=== PATIENT | female | born 2000 | race Two or more races ===

== ENCOUNTER 2021-06-08 18:09 | Emergency (ER) | payer MEDICAID ==
[~2021-06-08] VITALS: Ht 160 cm; Wt 52.2 kg
--- NOTE | 2021-06-08 18:35 | NUR ---
TO ER BED 11, C/O JAW PAIN,SLIPPED AND FELL LAST NIGHT, AAOX3, BREATHING EVEN AND NON LABORED, AWAITING MD ORDERS
[2021-06-08] MEDS ORDERED: IV NS 0.9% 1,000 ML BAG IV ONE (19:00)
[2021-06-08] MEDS ORDERED: ONDANSETRON HCL/PF 4 MG/2 ML VIAL IV ONE (19:00)
[2021-06-08] MEDS ORDERED: MORPHINE SULFATE INJ 4 MG/ML DISP.SYRIN IV ONE (19:00)
[2021-06-08] MEDS ORDERED: MORPHINE SULFATE INJ 2 MG/ML DISP.SYRIN ONE ×2 (19:09→19:11)
[2021-06-08] MEDS ORDERED: ONDANSETRON HCL/PF 4 MG/2 ML VIAL ONE (19:09)
[2021-06-08] MEDS ORDERED: MORPHINE SULFATE INJ 2 MG/ML DISP.SYRIN IV ONE (19:30)
[2021-06-08 19:38] LABS: CALCIUM, SERUM 9.1 mg/dL (8.5-10.1); CREATININE 0.8 mg/dL (0.6-1.3); POTASSIUM 3.3 mmol/L (3.5-5.1)
[2021-06-08] MEDS: KETOROLAC TROMETHAMINE INJ 30 MG/ML VIAL IV ONE ×2 (19:45→21:44)
--- NOTE | 2021-06-08 19:45 | NUR ---
PT DENIED PAIN AT THIS TIME. VSS.
[2021-06-08 20:02] LABS: BASOPHILS # (AUTO) 0.1 K/uL (0.0-0.2); BASOPHILS % (AUTO) 0.5 % (0.0-2.0); EOSINOPHILS % (AUTO) 0.4 % (0.0-6.0); HEMATOCRIT 37 % (33-45); HEMOGLOBIN 11.6 g/dL (11.5-14.8); LYMPHOCYTES # (AUTO) 2.2 K/uL (0.8-4.8); LYMPHOCYTES % (AUTO) 23.1 % (20.0-44.0); MEAN CORPUSCULAR HGB CONC 31 g/dl (31.0-36.0); MEAN CORPUSCULAR VOLUME 79 fL (82-100); MONOCYTES # (AUTO) 0.8 K/uL (0.1-1.30); MONOCYTES % (AUTO) 8.8 % (2.0-12.0); NEUTROPHILS # (AUTO) 6.5 K/uL (1.8-8.9); NEUTROPHILS % (AUTO) 67.2 % (43.0-81.0); PLATELET COUNT (AUTO) 325 K/uL (150-450); RED BLOOD CELL COUNT(AUTO) 4.74 MIL/uL (4.0-5.2); WHITE BLOOD COUNT (AUTO) 9.6 K/uL (4.3-11.0)
[2021-06-08] MEDS ORDERED: IV NS 0.9% 250 ML IV ONE (20:30)
[2021-06-08] MEDS ORDERED: IOHEXOL-300 100 ML VIAL IV ONE (20:30)
--- NOTE | 2021-06-08 20:36 | NUR ---
PT TAKEN TO CT VIA [facility]AT[facility]
--- NOTE | 2021-06-08 20:42 | NUR ---
PT RETURNED TO ER BED [address]
[2021-06-08] MEDS ORDERED: KETOROLAC TROMETHAMINE 15 MG/ML VIAL ONE (21:40)
[2021-06-08] MEDS ORDERED: CLIN300C12 PO (22:50)
[2021-06-08] MEDS ORDERED: HYDR-4303 PO (22:50)
[2021-06-08] MEDS ORDERED: CLINDAMYCIN 600 MG in IV D5W 100 ML IV ONE (23:00)
[2021-06-08] MEDS ORDERED: CLINDAMYCIN PHOSPHATE IV 600 MG/4 ML VIAL ONE (23:15)
[2021-06-08 23:17] VITALS: BP 115/71
--- NOTE | 2021-06-08 23:17 | NUR ---
Patient discharged to home in stable condition. Written and verbal after care instructions given. Patient verbalizes understanding of instruction. IV removed. Catheter intact and site benign. Pressure and 4x4 applied to site. No bleeding noted. PT ambulatory with a steady gait
== END 2021-06-08 23:17 | disposition home or self-care (01) ==
LOC: ER 18:18
DX: S00.531A Contusion of lip, initial encounter (principal); R68.84 Jaw pain; E87.6 Hypokalemia; Z79.899 Other long term (current) drug therapy; W18.30XA Fall on same level, unspecified, initial encounter; Y93.E1 Activity, personal bathing and showering; Y92.89 Other specified places as the place of occurrence of the external cause; Y99.8 Other external cause status
CPT/HCPCS: 36415; 70487; 80048; 84703; 85025; 96361; 96374; 96375; 99284; J1885; J2270 ×2; J2405; J7030 ×2; J7050; J7060; Q9967; J3490

== ENCOUNTER 2022-02-02 21:05 | Emergency (ER) | payer MEDICAID ==
[~2022-02-02] VITALS: Ht 160 cm; Wt 49.9 kg
[~2022-02-02 21:05] MED LIST: CLIN300C12 PO; HYDR-4303 PO
[2022-02-02] MEDS ORDERED: KETOROLAC TROMETHAMINE INJ 60 MG/2 ML VIAL IM ONE ×2 (21:23→21:30)
--- NOTE | 2022-02-02 21:23 | NUR ---
URINE COLLECTED AND SENT TO LAB
--- NOTE | 2022-02-02 21:27 | NUR ---
PT SIGNED WAIVER FORM
--- NOTE | 2022-02-02 21:28 | NUR ---
BIBSELF FROM HOME C/O LOWER BACK PAIN, FLANK PAIN. PT A/OX4. TOLERATING R/A WELL WITH NO RESP DISTRESS. SAFETY MEASURES IN PLACE.
[2022-02-02 22:06] LABS: BILIRUBIN,URINE NEGATIVE (NEGATIVE); COLOR,URINE YELLOW (YELLOW); LEUKOCYTE ESTERASE ,URINE 3+ (NEGATIVE); NITRITE, URINE POSITIVE (NEGATIVE); PROTEIN,URINE 2+ mg/dl (NEGATIVE); UGLUCOSE NEGATIVE (NEGATIVE)
[2022-02-02 22:25] LABS: BACTERIA,URINE 2+ /HPF (None Seen); RBC,URINE 51-80 /HPF (0-2); SQUAMOUS EPITHELIAL CELL,UR 0-2 /HPF (None Seen); WBC,URINE 81-100 /HPF (0-3)
[2022-02-02] MEDS ORDERED: KETO10TA2 PO ×2 (22:42→23:10)
[2022-02-02] MEDS ORDERED: CEPH500C2 PO ×2 (22:42→23:10)
[2022-02-02] MEDS ORDERED: CEPHALEXIN MONOHYDRATE 500 MG CAPSULE PO ONE ×2 (22:58→23:00)
[2022-02-02 23:01] VITALS: BP 121/70
--- NOTE | 2022-02-02 23:01 | NUR ---
Patient discharged to home in stable condition. Written and verbal after care instructions given. Patient verbalizes understanding of instruction.
== END 2022-02-02 23:15 | disposition home or self-care (01) ==
LOC: ER 21:06
DX: N12 Tubulo-interstitial nephritis, not specified as acute or chronic (principal); Z79.899 Other long term (current) drug therapy
CPT/HCPCS: 99283; 96372; 87086; 84703; 81001; J1885

== ENCOUNTER 2023-06-11 09:46 | Emergency (ER) | payer MEDICAID ==
[~2023-06-11] VITALS: Ht 162.6 cm; Wt 48.5 kg
[~2023-06-11 09:46] MED LIST changes: +CEPH500C2 PO; +KETO10TA2 PO
[2023-06-11 09:53] VITALS: BP 124/72; TEMP 98.4
[2023-06-11 10:38] LABS: BASOPHILS # (AUTO) 0.1 K/uL (0.0-0.2); BASOPHILS % (AUTO) 0.7 % (0.0-2.0); EOSINOPHILS # (AUTO) 0.1 K/uL (0.0-0.7); EOSINOPHILS % (AUTO) 0.7 % (0.0-6.0); HEMATOCRIT 39 % (33-45); HEMOGLOBIN 12.6 g/dL (11.5-14.8); LYMPHOCYTES # (AUTO) 1.4 K/uL (0.8-4.8); LYMPHOCYTES % (AUTO) 17.4 % (20.0-44.0); MEAN CORPUSCULAR HEMOGLOBIN 27 PG (26.0-33.0); MEAN CORPUSCULAR HGB CONC 33 g/dl (31.0-36.0); MEAN CORPUSCULAR VOLUME 84 fL (82-100); MONOCYTES # (AUTO) 0.5 K/uL (0.1-1.30); MONOCYTES % (AUTO) 5.8 % (2.0-12.0); NEUTROPHILS # (AUTO) 6.3 K/uL (1.8-8.9); NEUTROPHILS % (AUTO) 75.4 % (43.0-81.0); PLATELET COUNT (AUTO) 298 K/uL (150-450); RED BLOOD CELL COUNT(AUTO) 4.61 MIL/uL (4.0-5.2); RED CELL DISTRIBUTION WIDTH 14.8 % (11.5-15.0); WHITE BLOOD COUNT (AUTO) 8.3 K/uL (4.3-11.0)
[2023-06-11 10:51] LABS: CALCIUM, SERUM 8.7 mg/dL (8.5-10.1); CREATININE 0.7 mg/dL (0.6-1.3)
[2023-06-11 11:01] LABS: ERYTHROCYTE SEDIMENTATION RATE 16 MM/HR (0-20)
[2023-06-11 13:25] VITALS: O2SAT 100
[2023-06-11] MEDS ORDERED: IBUP-1953 PO (13:44)
== END 2023-06-11 13:30 | disposition home or self-care (01) ==
LOC: ER 09:46
DX: M25.561 Pain in right knee (principal); M25.511 Pain in right shoulder; M25.521 Pain in right elbow; Z79.899 Other long term (current) drug therapy
CPT/HCPCS: 36415; 73060-TC; 73564-TC; 80048-TC; 85025-TC; 85378-TC; 85652-TC

== ENCOUNTER 2023-10-17 20:30 | Emergency (ER) | payer MEDICAID, OTHER ==
[~2023-10-17] VITALS: Ht 167.6 cm; Wt 61.2 kg
[~2023-10-17 20:30] MED LIST changes: +IBUP-1953 PO
[2023-10-17] MEDS: KETOROLAC TROMETHAMINE 15 MG/ML VIAL IV ONE (22:30)
[2023-10-17] MEDS: ONDANSETRON HCL/PF 4 MG/2 ML VIAL IVP ONE (22:30)
[2023-10-17] MEDS: IV NS 0.9% 1,000 ML BAG IV ONE (22:30)
[2023-10-17] MEDS ORDERED: KETOROLAC TROMETHAMINE 15 MG/ML VIAL ONE (22:45)
[2023-10-17] MEDS ORDERED: ONDANSETRON HCL/PF 4 MG/2 ML VIAL ONE (22:45)
[2023-10-17] MEDS ORDERED: TRAM50TA2 PO (23:54)
[2023-10-17] MEDS ORDERED: ACET-2605 PO (23:54)
[2023-10-18 00:16] VITALS: BP 103/69; TEMP 98.5; O2SAT 98
== END 2023-10-18 00:17 | disposition home or self-care (01) ==
LOC: ER 20:56
DX: R51.9 Headache, unspecified (principal); K08.89 Other specified disorders of teeth and supporting structures; H53.149 Visual discomfort, unspecified; R11.0 Nausea
CPT/HCPCS: 99284; 96374; 96361; 96375; J2405; J7030; J1885